=== PATIENT | female | born 1955 | race African-American/Black ===

== ENCOUNTER 2017-06-17 22:40 | Emergency (ER) | payer MEDICARE, OTHER ==
[~2017-06-17 22:40] MED LIST: Furosemide 20 MG/2 ML VIAL ONE; Furosemide 40 MG/4 ML VIAL ONE; diphenhydrAMINE HCl 50 MG/ML 1 ML VIAL ONE
[2017-06-17] MEDS ORDERED: Ondansetron HCl/PF 4 MG/2 ML Vial ONE (23:10)
[2017-06-17] MEDS ORDERED: Metoprolol Tartrate 5 MG/5 ML VIAL ONE (23:10)
[2017-06-17] MEDS ORDERED: Nitroglycerin 2% Ointment 1 INCH/1 GM Packet ONE (23:10)
--- NOTE | 2017-06-17 23:11 | RAD ---
CHEST ONE VIEW 06/17/17 HISTORY: Chest pain. COMPARISON: 01/25/17 FINDINGS: The cardiac silhouette is magnified and enlarged. Pulmonary vasculature is slightly engorged. Medias tinum is midline. There is no confluent air space consolidation or evidence of pneumothorax. 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 IMPRESSION: Cardiomegaly with mild pulmonary vascular congestion. POS: [facility]
[2017-06-17 23:24] LABS: ALT (SGPT) 14 U/L (8-55); AST (SGOT) 19 U/L (5-34); Albumin 3.5 g/dL (3.4-4.8); Alkaline Phosphatase 216 U/L (40-150); Anion Gap 13 mmol/L (10-20); BUN (Urea Nitrogen) 52 mg/dL (9.8-20.1); CK (CPK) 24 U/L (29-168); Calc. Creatinine Clearance 0 mL/min (70-130); Calcium 9.6 mg/dL (7.8-10.44); Carbon Dioxide 24 mmol/L (23-31); Chloride 108 mmol/L (98-107); Estimated GFR-MDRD 29; Globulin 4.3 g/dL (2.4-3.5); Glucose 116 mg/dL (80-115); Potassium 4.7 mmol/L (3.5-5.1); Protein, Total 7.8 g/dL (6.0-8.3); Sodium 140 mmol/L (136-145)
[2017-06-17 23:37] LABS: Troponin I 0.047 ng/mL (< 0.028)
[2017-06-17 23:45] LABS: CKMB 0.9 ng/mL (0-6.6)
== END 2017-06-18 00:35 | disposition short-term general hospital (02) ==
LOC: MADERS 22:40
DX: I11.0 Hypertensive heart disease with heart failure (principal); I50.9 Heart failure, unspecified; N19 Unspecified kidney failure; R78.4 Finding of other drugs of addictive potential in blood; G47.30 Sleep apnea, unspecified; E11.9 Type 2 diabetes mellitus without complications; K21.9 Gastro-esophageal reflux disease without esophagitis; Z79.4 Long term (current) use of insulin; Z79.82 Long term (current) use of aspirin; Z79.899 Other long term (current) drug therapy
CPT/HCPCS: 71010; 80053; 82550; 82553; 83880; 84484; 93005; 94760; 96374; 96375; J1200; J1940; J2270; J2405

== ENCOUNTER 2017-07-28 15:31 | Outpatient (CLI) | payer MEDICAID, MEDICARE ==
[2017-07-28 16:24] LABS: ALT (SGPT) 18 U/L (8-55); AST (SGOT) 15 U/L (5-34); Albumin 3.5 g/dL (3.4-4.8); Alkaline Phosphatase 212 U/L (40-150); Anion Gap 16 mmol/L (10-20); BUN (Urea Nitrogen) 42 mg/dL (9.8-20.1); Bilirubin, Total 2.7 mg/dL (0.2-1.2); Calc. Creatinine Clearance 0 mL/min (70-130); Calcium 9.1 mg/dL (7.8-10.44); Carbon Dioxide 22 mmol/L (23-31); Cardiac Risk 2.5 (Less than 4.5); Chloride 105 mmol/L (98-107); Cholesterol 99 mg/dl (< 200 Desired); Estimated GFR-MDRD 20; Globulin 3.9 g/dL (2.4-3.5); Glucose 195 mg/dL (80-115); HDL Cholesterol 40 mg/dL (>60 Neg Risk); LDL Cholesterol, Calculated 40 mg/dL; Potassium 4.3 mmol/L (3.5-5.1); Protein, Total 7.4 g/dL (6.0-8.3); Sodium 139 mmol/L (136-145); Triglycerides 94 mg/dL (Less than 150)
[2017-07-28 17:02] LABS: Anisocytosis MODERATE=16-30 cells (100X) (0-5/hpf); Eosinophils 1 % (0-10); Hemoglobin 8.9 g/dL (12.0-16.0); Lymphocytes 18 % (21-51); MDiff Complete? YES; Mean Corpuscular HGB CONC 30.6 g/dL (32.0-36.0); Mean Corpuscular Hemoglobin 26.8 pg (27.0-31.0); Mean Corpuscular Volume 87.7 fl (81.0-99.0); Mean Platelet Volume 8.3 fL (7.4-10.4); Monocytes 8 % (0-10); Neutrophil 72 % (42-75); PLT Morphology Comment Appears Adequate; Platelet Count 231 thou/uL (130-400); Polychromasia SLIGHT = 2-3 cells (100X) (0-2/hpf); RBC Distribution Width 21.6 % (11.5-14.5); Reactive Lymphocytes 1 % (0-10); Red Blood Cell (RBC) Count 3.34 mill/uL (4.20-5.40); White Blood Cell (WBC) Count 4.4 thou/uL (4.8-10.8)
== END 2017-07-28 15:32 | disposition home or self-care (01) ==
LOC: MADLAB 15:31
PROVIDERS: ATTEND Physician Assistant
DX: E11.9 Type 2 diabetes mellitus without complications (principal)
CPT/HCPCS: 36415; 80053; 80061; 83880; 85025

== ENCOUNTER 2017-10-18 21:29 | Emergency (ER) | payer MEDICARE ==
[2017-10-18] MEDS ORDERED: HYDROcodone/Acetaminophen 10/325 mg Tablet ONE (22:43)
[2017-10-18 22:49] LABS: Bilirubin Negative (Negative); Blood, Urine Trace (Negative); Clarity Clear (Clear); Glucose, Urine (Dipstick) Negative (Negative); Leukocyte Negative (Negative); Nitrite Negative (Negative); Protein, Urine (Dipstick) 100 mg/dL (Neg-Trace); Urobilinogen 0.2 mg/dL (0.2-1.0)
[2017-10-18 22:55] LABS: Bacteria/HPF 1+ HPF (None Seen); WBC/HPF 0-3 HPF (0-3)
== END 2017-10-18 23:17 | disposition left against medical advice (07) ==
LOC: MADERS 21:29
DX: R10.11 Right upper quadrant pain (principal); R06.02 Shortness of breath; I11.0 Hypertensive heart disease with heart failure; I50.9 Heart failure, unspecified; E11.9 Type 2 diabetes mellitus without complications; G47.30 Sleep apnea, unspecified; K21.9 Gastro-esophageal reflux disease without esophagitis
CPT/HCPCS: 81003; 81015; 93005; 94760

== ENCOUNTER 2017-11-02 09:51 | Emergency (ER) | payer MEDICARE ==
[2017-11-02 10:57] LABS: Bilirubin Negative (Negative); Blood, Urine Small (Negative); Clarity Clear (Clear); Glucose, Urine (Dipstick) Negative (Negative); Leukocyte Negative (Negative); Nitrite Negative (Negative); Protein, Urine (Dipstick) > or equal to 300 mg/dL (Neg-Trace); Urobilinogen 0.2 mg/dL (0.2-1.0); pH, Urine 5.5 (5.0-9.0)
[2017-11-02 11:01] LABS: Bacteria/HPF Rare-Few HPF (None Seen); RBC/HPF 0-3 HPF (0-3); WBC/HPF 0-3 HPF (0-3)
--- NOTE | 2017-11-02 11:34 | RAD ---
CHEST ONE VIEW: ABDOMEN TWO VIEWS: HISTORY: A 62-year-old female with abdominal pain. COMPARISON: 06/25/2017 FINDINGS: There is cardiomegaly with vascular congestion, minimal interstitial edema, and pleural effusions, ev idence for stable congestive heart failure. There is gas and fecal material in the colon. No eviden ce for large or small bowel obstruction. No free intraperitoneal air. No overt calculus. IMPRESSION: 1. Evidence for stable congestive heart failure. 2. No significant acute process in the abdomen. POS: [facility]
[2017-11-02 11:46] LABS: ALT (SGPT) 11 U/L (8-55); AST (SGOT) 18 U/L (5-34); Albumin 4.1 g/dL (3.4-4.8); Alkaline Phosphatase 228 U/L (40-150); Anion Gap 18 mmol/L (10-20); BUN (Urea Nitrogen) 90 mg/dL (9.8-20.1); Calc. Creatinine Clearance 0 mL/min (70-130); Calcium 9.9 mg/dL (7.8-10.44); Carbon Dioxide 26 mmol/L (23-31); Chloride 104 mmol/L (98-107); Estimated GFR-MDRD 15; Globulin 5.3 g/dL (2.4-3.5); Glucose 142 mg/dL (80-115); Lipase 7 U/L (8-78); Potassium 4.5 mmol/L (3.5-5.1); Protein, Total 9.4 g/dL (6.0-8.3); Sodium 143 mmol/L (136-145)
[2017-11-02 11:48] LABS: #Basophils 0.1 thou/uL (0.0-0.2); #Eosinphils 0.1 thou/uL (0.0-0.7); #Lymphocytes 0.9 thou/uL (1.20-3.40); #Monocytes 0.5 thou/uL (0.11-0.59); #Neutrophils 2.3 thou/uL (1.40-6.50); %Basophils 1.4 % (0.0-1.0); %Eosinophils 2.1 % (0.0-10.0); %Monocytes 11.9 % (0.0-10.0); %Neutrophils 60.7 % (42.0-75.0); Anisocytosis SLIGHT = 6-15 cells (100X) (0-5/hpf); Hemoglobin 9.6 g/dL (12.0-16.0); Hypochromia MODERATE=16-30 cells (100X) (0-5/hpf); MDiff Complete? YES; Mean Corpuscular HGB CONC 29.7 g/dL (32.0-36.0); Mean Corpuscular Hemoglobin 26.2 pg (27.0-31.0); Mean Corpuscular Volume 88.1 fl (81.0-99.0); Mean Platelet Volume 7.3 fL (7.4-10.4); Platelet Count 204 thou/uL (130-400); RBC Distribution Width 24.7 % (11.5-14.5); Red Blood Cell (RBC) Count 3.65 mill/uL (4.20-5.40); Reflex for Review?? YES; Stomatocytes SLIGHT = 2-5 cells (100X) (0-1/hpf); White Blood Cell (WBC) Count 3.8 thou/uL (4.8-10.8)
[2017-11-02 11:52] LABS: Schistocytes SLIGHT = 2-5 cells (100X) (0-1/hpf)
[2017-11-02] MEDS ORDERED: traMADol HCl 50 MG TAB ONE ×2 (11:53→11:54)
[2017-11-02] MEDS ORDERED: Ondansetron ODT 4 MG TAB ONE (11:53)
--- NOTE | 2017-11-02 13:29 | ULT ---
RIGHT UPPER QUADRANT ULTRASOUND: Date: 11/02/17 COMPARISON: None. HISTORY: Intermittent right upper quadrant pain, history of cholecystectomy. TECHNIQUE: Multiplanar Corona scale sonographic imaging of the right upper quadrant obtained. FINDINGS: The pancreas is poorly assessed secondary to overlying bowel gas. The hepatic parenchyma is mildly echogenic and heterogeneous. This may signify hepatocellular disease such as steatosis. The right kidney measures 9.5 cm in craniocaudal dimension and demonstrates no ev idence for stone, hydronephrosis, or mass. The CBD measures in the 2-3 mm range, within normal limits. The gallbladder is nonvisualized, consist ent with the provided history of cholecystectomy. IMPRESSION: No biliary dilatation seen. Status post cholecystectomy. POS: [facility]
[2017-11-02] MEDS ORDERED: Cyclobenzaprine 10 MG TAB ONE (14:22)
== END 2017-11-02 14:24 | disposition home or self-care (01) ==
LOC: MADERS 09:51
DX: S76.011A Strain of muscle, fascia and tendon of right hip, initial encounter (principal); R10.11 Right upper quadrant pain; E11.22 Type 2 diabetes mellitus with diabetic chronic kidney disease; I13.0 Hypertensive heart and chronic kidney disease with heart failure and stage 1 through stage 4 chronic kidney disease, or unspecified chronic kidney disease; I50.9 Heart failure, unspecified; N18.9 Chronic kidney disease, unspecified; K21.9 Gastro-esophageal reflux disease without esophagitis
CPT/HCPCS: 36415; 74022; 76705; 80053; 81003; 81015; 82150; 83690; 85025; 85060; 87086; Q0162

== ENCOUNTER 2017-11-25 21:42 | Emergency (ER) | payer MEDICARE ==
[2017-11-25] MEDS ORDERED: Ondansetron ODT 4 MG TAB ONE (22:20)
[2017-11-25] MEDS ORDERED: Furosemide 40 MG TAB ONE (22:20)
[2017-11-25] MEDS ORDERED: Fentanyl 100 MCG/2 ML VIAL ONE (22:26)
[2017-11-25 23:13] LABS: Anion Gap 17 mmol/L (10-20); BUN (Urea Nitrogen) 57 mg/dL (9.8-20.1); Calc. Creatinine Clearance 0 mL/min (70-130); Calcium 9.4 mg/dL (7.8-10.44); Carbon Dioxide 22 mmol/L (23-31); Chloride 104 mmol/L (98-107); Estimated GFR-MDRD 25; Glucose 92 mg/dL (80-115); Potassium 4.3 mmol/L (3.5-5.1); Sodium 139 mmol/L (136-145)
[2017-11-25 23:20] LABS: Hemoglobin 8.6 g/dL (12.0-16.0); Mean Corpuscular HGB CONC 32.1 g/dL (32.0-36.0); Mean Corpuscular Hemoglobin 27.7 pg (27.0-31.0); Mean Corpuscular Volume 86.5 fl (81.0-99.0); Platelet Count 267 thou/uL (130-400); RBC Distribution Width 22.8 % (11.5-14.5); Red Blood Cell (RBC) Count 3.09 mill/uL (4.20-5.40); White Blood Cell (WBC) Count 3.8 thou/uL (4.8-10.8)
[2017-11-25 23:21] LABS: Band 4 % (5-11); CKMB 0.5 ng/mL (0-6.6); Troponin I 0.012 ng/mL (< 0.028)
[2017-11-25 23:22] LABS: Anisocytosis MODERATE=16-30 cells (100X) (0-5/hpf); Lymphocytes 25 % (21-51); Monocytes 4 % (0-10); Neutrophil 67 % (42-75); Poikilocytosis SLIGHT = 6-15 cells (100X) (0-5/hpf)
[2017-11-25 23:23] LABS: Hypochromia MODERATE=16-30 cells (100X) (0-5/hpf); Schistocytes MODERATE= 6-15 cells (100X) (0-1/hpf); Target Cells SLIGHT = 2-5 cells (100X) (0-1/hpf)
[2017-11-25 23:24] LABS: MDiff Complete? YES
[2017-11-25] MEDS ORDERED: Furosemide 40 MG/4 ML VIAL ONE (23:40)
== END 2017-11-26 00:17 | disposition short-term general hospital (02) ==
LOC: MADERS 21:42
DX: I11.0 Hypertensive heart disease with heart failure (principal); I50.9 Heart failure, unspecified; G47.30 Sleep apnea, unspecified; E11.9 Type 2 diabetes mellitus without complications; K21.9 Gastro-esophageal reflux disease without esophagitis; Z79.4 Long term (current) use of insulin; Z79.82 Long term (current) use of aspirin; Z79.899 Other long term (current) drug therapy
CPT/HCPCS: 36415; 80048; 82553; 83880; 84484; 85025; 96372; 96374; J1940; J3010; Q0162

== ENCOUNTER 2018-01-07 16:16 | Emergency (ER) | payer MEDICARE ==
[2018-01-07] MEDS ORDERED: Diazepam 5 MG TAB ONE (17:16)
[2018-01-07] MEDS ORDERED: MORPHINE 10 MG/ML SYRINGE ONE (17:16)
[2018-01-07 17:24] LABS: #Eosinphils 0.1 thou/uL (0.0-0.7); #Lymphocytes 0.8 thou/uL (1.20-3.40); #Monocytes 0.4 thou/uL (0.11-0.59); #Neutrophils 2.6 thou/uL (1.40-6.50); %Basophils 0.8 % (0.0-1.0); %Eosinophils 1.6 % (0.0-10.0); %Lymphocytes 20.3 % (21.0-51.0); %Monocytes 11.1 % (0.0-10.0); %Neutrophils 66.2 % (42.0-75.0); Hemoglobin 8.9 g/dL (12.0-16.0); Hypochromia SLIGHT = 6-15 cells (100X) (0-5/hpf); MDiff Complete? YES; Mean Corpuscular HGB CONC 28.8 g/dL (32.0-36.0); Mean Corpuscular Hemoglobin 25.8 pg (27.0-31.0); Mean Corpuscular Volume 89.6 fl (81.0-99.0); Mean Platelet Volume 6.1 fL (7.4-10.4); PLT Morphology Comment Appears Adequate; Platelet Count 221 thou/uL (130-400); Red Blood Cell (RBC) Count 3.46 mill/uL (4.20-5.40); Schistocytes SLIGHT = 2-5 cells (100X) (0-1/hpf)
[2018-01-07 17:34] LABS: ALT (SGPT) 20 U/L (8-55); AST (SGOT) 22 U/L (5-34); Albumin 3.8 g/dL (3.4-4.8); Alkaline Phosphatase 427 U/L (40-150); Anion Gap 16 mmol/L (10-20); BUN (Urea Nitrogen) 62 mg/dL (9.8-20.1); Bilirubin, Total 3.3 mg/dL (0.2-1.2); Calc. Creatinine Clearance 0 mL/min (70-130); Calcium 9.8 mg/dL (7.8-10.44); Carbon Dioxide 21 mmol/L (23-31); Chloride 107 mmol/L (98-107); Estimated GFR-MDRD 22; Globulin 4.5 g/dL (2.4-3.5); Glucose 75 mg/dL (80-115); Potassium 4.5 mmol/L (3.5-5.1); Protein, Total 8.3 g/dL (6.0-8.3); Sodium 139 mmol/L (136-145)
== END 2018-01-07 18:45 | disposition home or self-care (01) ==
LOC: MADERS 16:16
DX: E11.40 Type 2 diabetes mellitus with diabetic neuropathy, unspecified (principal); I11.0 Hypertensive heart disease with heart failure; I50.9 Heart failure, unspecified; N19 Unspecified kidney failure; K21.9 Gastro-esophageal reflux disease without esophagitis; G47.30 Sleep apnea, unspecified; Z79.4 Long term (current) use of insulin; Z79.899 Other long term (current) drug therapy
CPT/HCPCS: 36415; 80053; 85025; 96372; J2270

== ENCOUNTER 2018-02-11 10:11 | Emergency (ER) | payer MEDICARE ==
[2018-02-11] MEDS ORDERED: HYDROcodone/Acetaminophen 10/325 mg Tablet ONE (11:04)
--- NOTE | 2018-02-11 14:01 | RAD ---
RIGHT FEMUR 2 VIEWS: HISTORY: A 62-year-old female with a history of right femur pain following an injury. FINDINGS: The patient has a very large body habitus which lowers the sensitivity of this study. Right hip join t and right knee joint arthrosis. No evidence for acute femoral fracture. IMPRESSION: Degenerative changes without evidence for acute femoral fracture. POS: [facility]
== END 2018-02-11 11:25 | disposition home or self-care (01) ==
LOC: MADERS 10:11
DX: S83.91XA Sprain of unspecified site of right knee, initial encounter (principal); S70.01XA Contusion of right hip, initial encounter; E11.9 Type 2 diabetes mellitus without complications; K21.9 Gastro-esophageal reflux disease without esophagitis; I11.0 Hypertensive heart disease with heart failure; I50.9 Heart failure, unspecified; Z79.82 Long term (current) use of aspirin; Z79.899 Other long term (current) drug therapy; W19.XXXA Unspecified fall, initial encounter

== ENCOUNTER 2018-04-16 18:53 | Emergency (ER) | payer MEDICARE ==
[2018-04-16] MEDS ORDERED: HYDROcodone/Acetaminophen 5/325 mg Tablet ONE (19:10)
[2018-04-16] MEDS ORDERED: Gabapentin 100 MG CAP ONE (19:11)
[2018-04-16] MEDS ORDERED: Acetaminophen 325 MG TAB ONE (19:11)
== END 2018-04-16 19:19 | disposition home or self-care (01) ==
LOC: MADERS 18:53
DX: G57.93 Unspecified mononeuropathy of bilateral lower limbs (principal); R60.0 Localized edema; G47.30 Sleep apnea, unspecified; I11.0 Hypertensive heart disease with heart failure; I50.9 Heart failure, unspecified; K21.9 Gastro-esophageal reflux disease without esophagitis; E11.9 Type 2 diabetes mellitus without complications
CPT/HCPCS: 99283

== ENCOUNTER 2018-05-20 15:10 | Emergency (ER) | payer MEDICARE ==
[2018-05-20 16:32] LABS: ALT (SGPT) 10 U/L (8-55); AST (SGOT) 18 U/L (5-34); Albumin 3.5 g/dL (3.4-4.8); Alkaline Phosphatase 513 U/L (40-150); Anion Gap 15 mmol/L (10-20); Anisocytosis SLIGHT = 6-15 cells (100X) (0-5/hpf); BUN (Urea Nitrogen) 68 mg/dL (9.8-20.1); Bilirubin, Total 2.2 mg/dL (0.2-1.2); Calc. Creatinine Clearance 0 mL/min (70-130); Calcium 9.3 mg/dL (7.8-10.44); Carbon Dioxide 17 mmol/L (23-31); Chloride 112 mmol/L (98-107); Eosinophils 5 % (0-10); Estimated GFR-MDRD 19; Globulin 4.3 g/dL (2.4-3.5); Glucose 68 mg/dL (80-115); Helmet Cells SLIGHT = 2-5 cells (100X) (0-1/hpf); Hemoglobin 7.9 g/dL (12.0-16.0); Lymphocytes 32 % (21-51); MDiff Complete? YES; Mean Corpuscular HGB CONC 29.5 g/dL (32.0-36.0); Mean Corpuscular Hemoglobin 25.4 pg (27.0-31.0); Mean Corpuscular Volume 86.1 fL (78.0-98.0); Mean Platelet Volume 5.4 fL (7.4-10.4); Monocytes 5 % (0-10); Neutrophil 58 % (42-75); Nucleated RBC 2 % (0); Platelet Count 164 thou/uL (130-400); Poikilocytosis SLIGHT = 6-15 cells (100X) (0-5/hpf); Potassium 6.3 mmol/L (3.5-5.1); Protein, Total 7.8 g/dL (6.0-8.3); RBC Distribution Width 23.8 % (11.5-14.5); Red Blood Cell (RBC) Count 3.12 mill/uL (4.20-5.40); Schistocytes MODERATE= 6-15 cells (100X) (0-1/hpf); Sodium 138 mmol/L (136-145); Tear Drops SLIGHT = 2-5 cells (100X) (0-1/hpf)
== END 2018-05-20 17:29 | disposition short-term general hospital (02) ==
LOC: MADERS 15:10
DX: I89.0 Lymphedema, not elsewhere classified (principal); I11.0 Hypertensive heart disease with heart failure; I50.9 Heart failure, unspecified; E11.9 Type 2 diabetes mellitus without complications; G47.30 Sleep apnea, unspecified; K21.9 Gastro-esophageal reflux disease without esophagitis; Z79.899 Other long term (current) drug therapy; Z79.82 Long term (current) use of aspirin; Z79.4 Long term (current) use of insulin
CPT/HCPCS: 36415; 80053; 83880; 85025; 86140; 99284

== ENCOUNTER 2018-06-23 14:16 | Emergency (ER) | payer MEDICARE ==
[2018-06-23] MEDS ORDERED: Clindamycin/D5W 300 MG/50 ML BAG ONE (14:37)
[2018-06-23] MEDS ORDERED: HYDROcodone/Acetaminophen 10/325 mg Tablet ONE (14:37)
[2018-06-23] MEDS ORDERED: Clindamycin 150 MG CAP ONE (14:39)
== END 2018-06-23 14:55 | disposition home or self-care (01) ==
LOC: MADERS 14:16
DX: L03.116 Cellulitis of left lower limb (principal); I89.0 Lymphedema, not elsewhere classified; G47.30 Sleep apnea, unspecified; I11.0 Hypertensive heart disease with heart failure; I50.9 Heart failure, unspecified; E11.9 Type 2 diabetes mellitus without complications; K21.9 Gastro-esophageal reflux disease without esophagitis; Z86.718 Personal history of other venous thrombosis and embolism; Z79.899 Other long term (current) drug therapy; Z79.82 Long term (current) use of aspirin; Z79.4 Long term (current) use of insulin
CPT/HCPCS: 99283; J3490

== ENCOUNTER 2018-07-12 01:51 | Emergency (ER) | payer MEDICARE | END 2018-07-12 02:45 | disposition short-term general hospital (02) | LOC: MADERS 01:51 | DX: I89.0 Lymphedema, not elsewhere classified (principal); I13.0 Hypertensive heart and chronic kidney disease with heart failure and stage 1 through stage 4 chronic kidney disease, or unspecified chronic kidney disease; N18.9 Chronic kidney disease, unspecified; I50.9 Heart failure, unspecified; K21.9 Gastro-esophageal reflux disease without esophagitis; E11.22 Type 2 diabetes mellitus with diabetic chronic kidney disease; Z79.4 Long term (current) use of insulin; Z79.899 Other long term (current) drug therapy; Z79.82 Long term (current) use of aspirin | CPT/HCPCS: 99284 ==

== ENCOUNTER 2018-07-26 07:47 | Emergency (ER) | payer MEDICARE ==
--- NOTE | 2018-07-26 09:06 | RAD ---
PORTABLE CHEST 1 VIEW: DATE: 07/26/18. TIME: 8:10 a.m. HISTORY: Dyspnea. FINDINGS: Comparison is made with the exam of 11/02/17. The heart is enlarged. There is mild pulmonary vascular congestion. No lobar consolidation, pneumot horaces, or pleural effusions are seen. POS: [facility]
[2018-07-26 09:14] LABS: ALT (SGPT) 15 U/L (8-55); AST (SGOT) 16 U/L (5-34); Albumin 3.3 g/dL (3.4-4.8); Alkaline Phosphatase 700 U/L (40-150); Anion Gap 17 mmol/L (10-20); BUN (Urea Nitrogen) 75 mg/dL (9.8-20.1); Bilirubin, Total 1.1 mg/dL (0.2-1.2); Calc. Creatinine Clearance 0 mL/min (70-130); Calcium 9.7 mg/dL (7.8-10.44); Carbon Dioxide 17 mmol/L (23-31); Chloride 109 mmol/L (98-107); Estimated GFR-MDRD 19; Globulin 5.9 g/dL (2.4-3.5); Glucose 111 mg/dL (80-115); Potassium 5.9 mmol/L (3.5-5.1); Protein, Total 9.2 g/dL (6.0-8.3); Sodium 137 mmol/L (136-145)
[2018-07-26 09:15] LABS: Hemoglobin 8.2 g/dL (12.0-16.0); Mean Corpuscular HGB CONC 30.2 g/dL (32.0-36.0); Mean Corpuscular Hemoglobin 25.8 pg (27.0-31.0); Mean Corpuscular Volume 85.5 fL (78.0-98.0); Mean Platelet Volume 8.2 fL (7.4-10.4); Platelet Count 278 thou/uL (130-400); RBC Distribution Width 21.3 % (11.5-14.5); Red Blood Cell (RBC) Count 3.16 mill/uL (4.20-5.40); White Blood Cell (WBC) Count 5.5 thou/uL (4.8-10.8)
[2018-07-26 09:16] LABS: CKMB 0.8 ng/mL (0-6.6); Troponin I Less than 0.010 ng/mL (< 0.028)
[2018-07-26 09:25] LABS: Band 1 % (5-11); Lymphocytes 27 % (21-51); MDiff Complete? YES; Manual Diff?? YES; Monocytes 6 % (0-10); Neutrophil 66 % (42-75)
[2018-07-26 09:26] LABS: Anisocytosis SLIGHT = 6-15 cells (100X) (0-5/hpf); PLT Morphology Comment Appears Adequate; Poikilocytosis SLIGHT = 6-15 cells (100X) (0-5/hpf)
[2018-07-26] MEDS ORDERED: Dextrose 50% Abboject 50 ML SYRINGE ONE (10:13)
[2018-07-26] MEDS ORDERED: Insulin Regular 300 UNITS/3 ML VIAL ONE (12:35)
[2018-07-26] MEDS ORDERED: Sodium Chloride 0.9% 1,000 ML BAG ONE (12:35)
[2018-07-26 12:38] LABS: Anion Gap 13 mmol/L (10-20); BUN (Urea Nitrogen) 74 mg/dL (9.8-20.1); Calc. Creatinine Clearance 0 mL/min (70-130); Calcium 9.4 mg/dL (7.8-10.44); Carbon Dioxide 20 mmol/L (23-31); Chloride 111 mmol/L (98-107); Estimated GFR-MDRD 20; Sodium 139 mmol/L (136-145)
[2018-07-26 12:44] LABS: Glucose 34 mg/dL (80-115)
== END 2018-07-26 14:05 | disposition home or self-care (01) ==
LOC: MADERS 07:47
DX: E87.5 Hyperkalemia (principal); D64.9 Anemia, unspecified; N18.9 Chronic kidney disease, unspecified; E11.649 Type 2 diabetes mellitus with hypoglycemia without coma; I11.0 Hypertensive heart disease with heart failure; I50.9 Heart failure, unspecified; G47.30 Sleep apnea, unspecified; K21.9 Gastro-esophageal reflux disease without esophagitis; Z86.718 Personal history of other venous thrombosis and embolism; Z79.899 Other long term (current) drug therapy; Z79.82 Long term (current) use of aspirin
CPT/HCPCS: 36416; 71045; 82553; 83880; 84484; 93005; 94760; 96361; 96374; 96375; J1815; J7050

== ENCOUNTER 2018-12-22 12:43 | Emergency (ER) | payer MEDICARE ==
[2018-12-22] MEDS ORDERED: Morphine 10 MG/ML VIAL ONE (13:21)
[2018-12-22] MEDS ORDERED: diphenhydrAMINE 50 MG/ML VIAL ONE (13:43)
[2018-12-22 14:01] LABS: ALT (SGPT) 13 U/L (8-55); Albumin 3.5 g/dL (3.4-4.8); Alkaline Phosphatase 361 U/L (40-150); Anion Gap 16 mmol/L (10-20); BUN (Urea Nitrogen) 65 mg/dL (9.8-20.1); Bilirubin, Total 2.4 mg/dL (0.2-1.2); Calc. Creatinine Clearance 0 mL/min (70-130); Calcium 9.2 mg/dL (7.8-10.44); Carbon Dioxide 16 mmol/L (23-31); Chloride 111 mmol/L (98-107); Estimated GFR-MDRD 24; Globulin 4.5 g/dL (2.4-3.5); Glucose 90 mg/dL (80-115); Potassium 5.7 mmol/L (3.5-5.1); Sodium 137 mmol/L (136-145)
[2018-12-22 14:04] LABS: Hemoglobin 9.1 g/dL (12.0-16.0); Mean Corpuscular HGB CONC 30.5 g/dL (32.0-36.0); Mean Corpuscular Hemoglobin 26.3 pg (27.0-31.0); Mean Corpuscular Volume 86.4 fL (78.0-98.0); Mean Platelet Volume 7.1 fL (7.4-10.4); Platelet Count 225 thou/uL (130-400); RBC Distribution Width 22.4 % (11.5-14.5); Red Blood Cell (RBC) Count 3.47 mill/uL (4.20-5.40); White Blood Cell (WBC) Count 4.9 thou/uL (4.8-10.8)
[2018-12-22 14:20] LABS: #Basophils 0.1 thou/uL (0.0-0.2); #Eosinphils 0.1 thou/uL (0.0-0.7); #Monocytes 0.6 thou/uL (0.11-0.59); #Neutrophils 3.1 thou/uL (1.40-6.50); %Eosinophils 2.5 % (0.0-10.0); %Lymphocytes 21.1 % (21.0-51.0); %Monocytes 11.3 % (0.0-10.0); %Neutrophils 63.2 % (42.0-75.0); Bite Cells SLIGHT = 2-5 cells (100X) (0-1/hpf); MDiff Complete? YES; Platelet Morphology Comment Appears Adequate; Polychromasia SLIGHT = 2-3 cells (100X) (0-2/hpf)
[2018-12-22 14:23] LABS: AST (SGOT) 25 U/L (5-34)
[2018-12-22] MEDS ORDERED: Sodium Chloride 0.9% 1,000 ML ONE (14:45)
== END 2018-12-22 15:13 | disposition short-term general hospital (02) ==
LOC: MADERS 12:43
DX: E87.5 Hyperkalemia (principal); I89.0 Lymphedema, not elsewhere classified; I13.0 Hypertensive heart and chronic kidney disease with heart failure and stage 1 through stage 4 chronic kidney disease, or unspecified chronic kidney disease; I50.9 Heart failure, unspecified; N18.9 Chronic kidney disease, unspecified; S81.802A Unspecified open wound, left lower leg, initial encounter; G47.30 Sleep apnea, unspecified; E11.9 Type 2 diabetes mellitus without complications; K21.9 Gastro-esophageal reflux disease without esophagitis; Z79.899 Other long term (current) drug therapy; Z79.82 Long term (current) use of aspirin
CPT/HCPCS: 36416; 80053; 85025; 96374; 96375; J1200; J2270; J7050

== ENCOUNTER 2019-04-03 07:20 | Emergency (ER) | payer MEDICARE ==
--- NOTE | 2019-04-03 08:08 | RAD ---
CHEST ONE VIEW: History: Dyspnea. Comparison: 12-22-18 FINDINGS: Cardiomegaly with bilateral vascular congestion and patchy bilateral perihilar alveolar parenchymal c hanges concerning for some edema. Slight costophrenic angle blunting, evidence for small effusions. IMPRESSION: Cardiomegaly with vascular congestion, mild edema, and small pleural effusions concerning for congest tanesha heart failure with minimal pulmonary edema. POS: [facility]
[2019-04-03 08:21] LABS: #Eosinphils 0.1 thou/uL (0.0-0.7); #Lymphocytes 0.9 thou/uL (1.20-3.40); #Monocytes 0.5 thou/uL (0.11-0.59); %Basophils 0.7 % (0.0-1.0); %Eosinophils 1.9 % (0.0-10.0); %Lymphocytes 19.5 % (21.0-51.0); %Monocytes 10.1 % (0.0-10.0); %Neutrophils 67.8 % (42.0-75.0); Hemoglobin 9.3 g/dL (12.0-16.0); Mean Corpuscular HGB CONC 29.9 g/dL (32.0-36.0); Mean Corpuscular Hemoglobin 26.2 pg (27.0-31.0); Mean Corpuscular Volume 87.5 fL (78.0-98.0); Mean Platelet Volume 6.2 fL (7.4-10.4); Platelet Count 156 thou/uL (130-400); RBC Distribution Width 21.6 % (11.5-14.5); Red Blood Cell (RBC) Count 3.55 mill/uL (4.20-5.40); White Blood Cell (WBC) Count 4.4 thou/uL (4.8-10.8)
[2019-04-03 08:33] LABS: Anisocytosis SLIGHT = 6-15 cells (100X) (0-5/hpf); Platelet Morphology Comment Appears Adequate; Poikilocytosis SLIGHT = 6-15 cells (100X) (0-5/hpf); Schistocytes SLIGHT = 2-5 cells (100X) (0-1/hpf)
[2019-04-03 08:40] LABS: ALT (SGPT) 10 U/L (8-55); AST (SGOT) 12 U/L (5-34); Albumin 3.7 g/dL (3.4-4.8); Alkaline Phosphatase 264 U/L (40-150); Anion Gap 12 mmol/L (10-20); BUN (Urea Nitrogen) 62 mg/dL (9.8-20.1); Bilirubin, Total 1.9 mg/dL (0.2-1.2); Calc. Creatinine Clearance 0 mL/min (70-130); Calcium 8.7 mg/dL (7.8-10.44); Carbon Dioxide 18 mmol/L (23-31); Chloride 115 mmol/L (98-107); Estimated GFR-MDRD 17; Glucose 153 mg/dL (80-115); Potassium 5.1 mmol/L (3.5-5.1); Protein, Total 7.7 g/dL (6.0-8.3); Sodium 140 mmol/L (136-145)
[2019-04-03] MEDS ORDERED: Furosemide 40 MG/4 ML VIAL ONE (08:51)
== END 2019-04-03 09:40 | disposition short-term general hospital (02) ==
LOC: MADERS 07:20
DX: I11.0 Hypertensive heart disease with heart failure (principal); I50.9 Heart failure, unspecified; D64.9 Anemia, unspecified; K21.9 Gastro-esophageal reflux disease without esophagitis; G47.30 Sleep apnea, unspecified; Z86.718 Personal history of other venous thrombosis and embolism; Z79.82 Long term (current) use of aspirin; Z79.891 Long term (current) use of opiate analgesic; Z79.899 Other long term (current) drug therapy
CPT/HCPCS: 71045; 80053; 83880; 84484; 85025; 93005; 96374; J1940

== ENCOUNTER 2019-05-27 06:39 | Emergency (ER) | payer MEDICARE ==
[2019-05-27] MEDS ORDERED: HYDROcodone/Acetaminophen 5/325 mg Tablet ONE (07:04)
--- NOTE | 2019-05-27 08:14 | RAD ---
RADIOGRAPH RIGHT FOOT 3 VIEWS: DATE: 05/27/2019. TIME: 7:30 a.m. HISTORY: A 63-year-old female with nontraumatic right foot pain. FINDINGS: There is a minimally displaced fracture of the proximal metaphysis of the 5th proximal phalanx, witho ut evidence of callus formation. Atherosclerotic calcification throughout all soft tissues. Mild DJ D at 1st MTP without hallux valgus. Diffuse osteopenia. Pes planus. Mild to moderate DJD at [place] vicular joint. Diffuse soft tissue edema. IMPRESSION: 1. Acute or subacute minimally displaced fracture at base of 5th proximal phalanx (5th toe). 2. Diffuse soft tissue edema of the foot. 3. Osteopenia. 4. Atherosclerosis. POS: [facility]
== END 2019-05-27 08:30 | disposition home or self-care (01) ==
LOC: MADERS 06:39
DX: S92.511A Displaced fracture of proximal phalanx of right lesser toe(s), initial encounter for closed fracture (principal); I13.2 Hypertensive heart and chronic kidney disease with heart failure and with stage 5 chronic kidney disease, or end stage renal disease; E11.22 Type 2 diabetes mellitus with diabetic chronic kidney disease; I50.9 Heart failure, unspecified; N18.6 End stage renal disease; K21.9 Gastro-esophageal reflux disease without esophagitis; G47.30 Sleep apnea, unspecified; X58.XXXA Exposure to other specified factors, initial encounter; Z86.718 Personal history of other venous thrombosis and embolism; Z99.2 Dependence on renal dialysis; Z79.82 Long term (current) use of aspirin; Z79.84 Long term (current) use of oral hypoglycemic drugs; Z79.899 Other long term (current) drug therapy

== ENCOUNTER 2019-10-03 12:22 | Emergency (ER) | payer MEDICARE ==
[2019-10-03] MEDS ORDERED: Ondansetron ODT 4 MG TAB ONE (12:38)
[2019-10-03 14:06] LABS: #Eosinphils 0.1 thou/uL (0.0-0.7); #Lymphocytes 1.1 thou/uL (1.20-3.40); #Monocytes 0.6 thou/uL (0.11-0.59); #Neutrophils 3.7 thou/uL (1.40-6.50); %Basophils 0.7 % (0.0-1.0); %Eosinophils 2.6 % (0.0-10.0); %Lymphocytes 20.2 % (21.0-51.0); %Monocytes 11.1 % (0.0-10.0); %Neutrophils 65.4 % (42.0-75.0); Hemoglobin 10.4 g/dL (12.0-16.0); Mean Corpuscular HGB CONC 29.1 g/dL (32.0-36.0); Mean Corpuscular Hemoglobin 27.8 pg (27.0-31.0); Mean Corpuscular Volume 95.6 fL (78.0-98.0); Mean Platelet Volume 9.7 fL (7.4-10.4); Platelet Count 228 thou/uL (130-400); RBC Distribution Width 17.2 % (11.5-14.5); Red Blood Cell (RBC) Count 3.74 mill/uL (4.20-5.40); White Blood Cell (WBC) Count 5.6 thou/uL (4.8-10.8)
[2019-10-03 14:12] LABS: ALT (SGPT) 43 U/L (8-55); AST (SGOT) 35 U/L (5-34); Albumin 3.9 g/dL (3.4-4.8); Alkaline Phosphatase 291 U/L (40-110); Anion Gap 20 mmol/L (10-20); BUN (Urea Nitrogen) 57 mg/dL (9.8-20.1); Bilirubin, Total 1.1 mg/dL (0.2-1.2); Calc. Creatinine Clearance 0 mL/min (70-130); Calcium 9.9 mg/dL (7.8-10.44); Carbon Dioxide 28 mmol/L (23-31); Chloride 94 mmol/L (98-107); Estimated GFR-MDRD 7; Globulin 4.6 g/dL (2.4-3.5); Glucose 152 mg/dL (80-115); Lipase 30 U/L (8-78); Potassium 6.1 mmol/L (3.5-5.1); Protein, Total 8.5 g/dL (6.0-8.3); Sodium 136 mmol/L (136-145)
[2019-10-03] MEDS ORDERED: Albuterol Sulfate 2.5 mg/0.5 ml Neb ONE ×2 (15:09→15:11)
[2019-10-03] MEDS ORDERED: Insulin Regular 300 UNITS/3 ML VIAL ONE (15:09)
[2019-10-03] MEDS ORDERED: Dextrose 50% Abboject 50 ML SYRINGE ONE (15:10)
[2019-10-03] MEDS ORDERED: Ondansetron PF 4 MG/2 ML Vial ONE (16:10)
[2019-10-03] MEDS ORDERED: Morphine 4 MG/ML VIAL ONE (17:10)
== END 2019-10-03 17:47 | disposition short-term general hospital (02) ==
LOC: MADERS 12:22
DX: E87.5 Hyperkalemia (principal); G47.30 Sleep apnea, unspecified; I11.0 Hypertensive heart disease with heart failure; I50.9 Heart failure, unspecified; E11.9 Type 2 diabetes mellitus without complications; K21.9 Gastro-esophageal reflux disease without esophagitis; Z86.718 Personal history of other venous thrombosis and embolism; Z79.01 Long term (current) use of anticoagulants; Z79.84 Long term (current) use of oral hypoglycemic drugs; Z79.899 Other long term (current) drug therapy; Z79.82 Long term (current) use of aspirin
CPT/HCPCS: 80053; 83690; 85025; 93005; 96374; 96375; J1815; J2270; J2405; J7611; Q0162

== ENCOUNTER 2019-10-21 08:30 | Outpatient (CLI) | payer MEDICARE ==
[2019-10-21 09:08] LABS: ALT (SGPT) 19 U/L (8-55); AST (SGOT) 19 U/L (5-34); Albumin 3.9 g/dL (3.4-4.8); Alkaline Phosphatase 223 U/L (40-110); Anion Gap 22 mmol/L (10-20); BUN (Urea Nitrogen) 73 mg/dL (9.8-20.1); Bilirubin, Total 1.1 mg/dL (0.2-1.2); Calc. Creatinine Clearance 0 mL/min (70-130); Calcium 9.9 mg/dL (7.8-10.44); Carbon Dioxide 21 mmol/L (23-31); Chloride 102 mmol/L (98-107); Estimated GFR-MDRD 5; Glucose 107 mg/dL (80-115); Potassium 5.1 mmol/L (3.5-5.1); Protein, Total 7.9 g/dL (6.0-8.3); Sodium 140 mmol/L (136-145)
[2019-10-21 10:00] LABS: Mean Corpuscular HGB CONC 28.5 g/dL (32.0-36.0); Mean Corpuscular Volume 98.1 fL (78.0-98.0); Red Blood Cell (RBC) Count 3.56 mill/uL (4.20-5.40); White Blood Cell (WBC) Count 3.1 thou/uL (4.8-10.8)
[2019-10-21 10:01] LABS: #Neutrophils 1.7 thou/uL (1.40-6.50); %Basophils 1.8 % (0.0-1.0); %Eosinophils 3.9 % (0.0-10.0); %Lymphocytes 30.6 % (21.0-51.0); %Neutrophils 52.7 % (42.0-75.0); Mean Platelet Volume 9.5 fL (7.4-10.4); Platelet Count 235 thou/uL (130-400); RBC Distribution Width 16.8 % (11.5-14.5)
[2019-10-21 10:02] LABS: #Basophils 0.1 thou/uL (0.0-0.2); #Eosinphils 0.1 thou/uL (0.0-0.7); #Monocytes 0.3 thou/uL (0.11-0.59)
== END 2019-10-21 08:31 | disposition home or self-care (01) ==
LOC: MADLAB 08:30
PROVIDERS: ATTEND Orthopaedic Surgery
DX: Z01.812 Encounter for preprocedural laboratory examination (principal); G56.03 Carpal tunnel syndrome, bilateral upper limbs
CPT/HCPCS: 36415; 80053; 85025

== ENCOUNTER 2020-12-11 10:23 | Emergency (ER) | payer MEDICARE ==
--- NOTE | 2020-12-11 10:47 | RAD ---
EXAM: CHEST ONE VIEW HISTORY: Chest pain. COMPARISON: 11/23/2020 FINDINGS: Right-sided tunneled hemodialysis catheter remains in place and unchanged in position. Cardiac silhou ette remains enlarged. Pulmonary vasculature is at the upper limits of normal. There is atelectasis in the region of the lingula. Lungs otherwise appear clear. No obvious pleural effusion is identified . No significant interval change. IMPRESSION: Cardiomegaly.
[2020-12-11 10:51] LABS: #Basophils 0.1 thou/uL (0.0-0.2); #Eosinphils 0.1 thou/uL (0.0-0.7); #Monocytes 0.5 thou/uL (0.11-0.59); #Neutrophils 3.2 thou/uL (1.40-6.50); %Basophils 1.2 % (0.0-1.0); %Eosinophils 1.2 % (0.0-10.0); %Lymphocytes 20.4 % (21.0-51.0); %Neutrophils 66.1 % (42.0-75.0); Hemoglobin 10.1 g/dL (12.0-16.0); Mean Corpuscular HGB CONC 30.9 g/dL (32.0-36.0); Mean Corpuscular Volume 93.8 fL (78.0-98.0); Mean Platelet Volume 10.1 fL (7.4-10.4); Platelet Count 193 thou/uL (130-400); White Blood Cell (WBC) Count 4.8 thou/uL (4.8-10.8)
[2020-12-11 11:06] LABS: ALT (SGPT) 15 U/L (8-55); AST (SGOT) 17 U/L (5-34); Albumin 3.9 g/dL (3.4-4.8); Alkaline Phosphatase 135 U/L (40-110); Anion Gap 19 mmol/L (10-20); BUN (Urea Nitrogen) 55 mg/dL (9.8-20.1); Bilirubin, Total 0.7 mg/dL (0.2-1.2); Calc. Creatinine Clearance 0 mL/min (70-130); Carbon Dioxide 25 mmol/L (23-31); Chloride 99 mmol/L (98-107); Globulin 3.6 g/dL (2.4-3.5); Glucose 160 mg/dL (80-115); Magnesium 2.2 mg/dL (1.6-2.6); Potassium 4.1 mmol/L (3.5-5.1); Protein, Total 7.5 g/dL (6.0-8.3)
[2020-12-11] MEDS ORDERED: Nitroglycerin 2% Ointment 1 INCH/1 GM Packet ONE (11:07)
[2020-12-11] MEDS ORDERED: Carvedilol 6.25 MG TAB ONE (11:07)
[2020-12-11 11:16] LABS: Sodium 139 mmol/L (136-145)
[2020-12-11 11:24] LABS: CKMB 1.2 ng/mL (0-6.6)
== END 2020-12-11 14:00 | disposition short-term general hospital (02) ==
LOC: MADERS 10:23
DX: I20.0 Unstable angina (principal); E87.70 Fluid overload, unspecified; G47.30 Sleep apnea, unspecified; I11.0 Hypertensive heart disease with heart failure; I50.9 Heart failure, unspecified; E11.9 Type 2 diabetes mellitus without complications; K21.9 Gastro-esophageal reflux disease without esophagitis; Z79.82 Long term (current) use of aspirin; Z79.899 Other long term (current) drug therapy
CPT/HCPCS: 36415; 71045; 80053; 82553; 83605; 83735; 83880; 84484; 85025; 93005; 94760